=== PATIENT | female | born 1960 | race Hispanic/Latino ===

== ENCOUNTER 2016-11-24 17:54 | Emergency (ER) | payer OTHER ==
[~2016-11-24] VITALS: Ht 157.5 cm; Wt 81.6 kg
[2016-11-24] MEDS ORDERED: PRAVASTATIN SOD10 M2 PO (19:32)
[2016-11-24] MEDS ORDERED: LEVOTHYROXINE50 MCG PO (19:32)
[2016-11-24] MEDS ORDERED: METFORMIN HCL500 M4 PO (19:33)
[2016-11-24] MEDS ORDERED: OMEGA-3 ACID ETH1 GM PO (19:33)
[2016-11-24] MEDS ORDERED: BIOTIN800 MCG PO (19:33)
[2016-11-24] MEDS ORDERED: VITAMIN E100 UNI2 PO (19:33)
[2016-11-24] MEDS ORDERED: MULTI-DAY VITA1 EACH PO (19:34)
--- NOTE | 2016-11-24 19:55 | ED GI/GU/ABDOMINAL COMPLAINT ---
History of Present Illness General Chief Complaint: Female Urogenital Problems Stated Complaint: UTI Source: patient, family Exam Limitations: no limitations Vital Signs & Intake/Output Vital Signs & Intake/Output Vital Signs Date Time Temp Pulse Resp B/P Pulse O2 O2 Flow FiO2 Ox Delivery Rate 11/24 1957 97.8 78 18 116/75 97 Room Air 11/25 1807 96.8 85 18 112/72 98 Room Air Room Air ED Intake and Output 11/25 0000 11/24 1200 Intake Total Output Total Balance Patient 180 lb Weight Allergies Coded Allergies: No Known Allergies (11/24/16) Reconcile Medications Biotin (Unknown Strength) TABLET (Unknown Dose) PO DAILY SUPPLEMENT (Reported ) Cephalexin (Keflex) 500 MG CAPSULE 1 CAP PO TID UTI Cephalexin (Keflex) 500 MG CAPSULE 1 CAP PO TID uti Levothyroxine Sodium 50 MCG TABLET 1 TAB PO DAILY THYROID (Reported) Metformin HCl (Metformin HCl ER) 500 MG TAB.ER.24H 2 TAB PO BID DM (Reported) Multivitamin (Multi-Day Vitamins) 1 EACH TABLET 1 TAB PO DAILY SUPPLEMENT ( Reported) Mylo-3 Acid Ethyl Esters 1 GRAM CAPSULE 2 CAP PO BID CHOLESTEROL/ TRIGLYCERIDES (Reported) Phenazopyridine HCl (Pyridium) 100 MG TABLET 1 TAB PO TID PRN pain w/ urination Pravastatin Sodium 10 MG TABLET 1 TAB PO DAILY CHOLESTEROL (Reported) Vitamin E Mixed (Vitamin E) (Unknown Strength) TABLET (Unknown Dose) PO DAILY SUPPLEMENT (Reported) Triage Note: TRIAGE: 56 Y/O FEMALE PRESENTS C/O 9/10 VAGINAL PAIN; :"IT FEELS LIKE MY INSIDES ARE COMING OUT EVERY TIME I PEE." REPORTS ONSET X2 MONTHS - HAS ALREADY COMPLETED 10 DAY COURSE OF ABX. Triage Nurses Notes Reviewed? yes ? n Is pt currently ? No HPI: Ms. Darnell is a 56 yo f w/ PMH of DM, HLD, and hypothyroidism stenting to the emergency department for dysuria. Patient states that she's had increased urinary frequency, dysuria as well as urgency since today. Patient states she had a urinary tract infection in September which she was treated with Bactrim for 10 days. Patient feels that ever since then, the UTI hasn't really completely resolved. She has intermittent sporadic episodes of dysuria that will resolve as well as suprapubic tenderness to palpation. She endorses suprapubic tenderness. Patient denies any fevers, chills, chest pain, abdominal pain, nausea, vomiting, diarrhea or decreased by mouth intake. She's been defecating without issues. No blood in the stools. (SHELBY SALAZAR MD) Past History Travel History Traveled to [place] past 21 day No Medical History Any Pertinent Medical History? see below for history Cardiovascular: hyperlipidemia Endocrine: diabetes, hypothyroidism Surgical History Surgical History: tubal ligation Psychosocial History Who do you live with Spouse Services at Home None What is your primary language Japanese Tobacco Use: Never used ETOH Use: occasional use Illicit Drug Use: denies illicit drug use Family History Hx Contributory? No (SHELBY SALAZAR MD) Review of Systems Review of Systems Constitutional: Reports: no symptoms. EENTM: Reports: no symptoms. Respiratory: Reports: no symptoms. Cardiovascular: Reports: no symptoms. GI: Reports: no symptoms. Genitourinary: Reports: dysuria, frequency, pain, urgency. Denies: discharge, hematuria. Musculoskeletal: Reports: no symptoms. Skin: Reports: no symptoms. Neurological/Psychological: Reports: no symptoms. Hematologic/Endocrine: Reports: no symptoms. Immunologic/Allergic: Reports: no symptoms. All Other Systems: Reviewed and Negative (SHELBY SALAZAR MD) Physical Exam Physical Exam General Appearance: well developed/nourished, no apparent distress, alert, awake Head: atraumatic, normal appearance Eyes: Bilateral: normal appearance, PERRL, EOMI, normal inspection. Ears, Nose, Throat, Mouth: hearing grossly normal Neck: normal inspection, supple, full range of motion Respiratory: normal breath sounds, chest non-tender, no respiratory distress Cardiovascular: regular rate/rhythm Gastrointestinal: normal bowel sounds, soft, suprapubic tenderness to palpation Rectal: deferred Pelvic: normal external exam, normal bimanual exam, no cerv. motion tender, no masses Back: normal inspection Extremities: normal range of motion Neurologic/Psych: no motor/sensory deficits, awake, alert, oriented x 3, normal gait, normal mood/affect Skin: intact, normal color, warm/dry Core Measures ACS in differential dx? No Severe Sepsis Present: No Septic Shock Present: No (SHELBY SALAZAR MD) Progress Differential Diagnosis: appendicitis, diverticulitis, ovarian torsion, PID/ cervicitis, UTI/pyelo Plan of Care: Orders Procedure Date/time Status CULTURE,URINE 11/25 1815 Active URINALYSIS 11/25 1815 Complete Laboratory Tests 11/24/161819: Urine Color YEL, Urine Clarity TURBD H, Urine pH 6.0, Ur Specific [place] >= 1.030, Urine Protein 100 H, Urine Ketones NEG, Urine Nitrite NEG, Urine Bilirubin NEG, Urine Urobilinogen 0.2, Ur Leukocyte Esterase LARGE H, Ur Microscopic SEDIMENT EXAMINED, Urine RBC PACKD H, Urine WBC PACKD H, Ur Epithelial Cells RARE, Urine Bacteria MOD H, Urine Hemoglobin LARGE H, Urine Glucose NEG Microbiology 11/25 1819 URINE ROUT: Urine Culture - RECD Patient is generally well-appearing 56-year-old female she endorses dysuria frequency and urgency. Has history of previous UTI and the symptoms are similar to those. Patient given Pyridium in the emergency department to improve the pain. Physical exam is consistent with a UTI versus cystitis given the patient has suprapubic tenderness only. Patient does not endorse any bowel problems such as diarrhea or constipation to suggest diverticulitis. She has not tender in the right lower quadrant to suggest appendicitis and is afebrile. UA is positive for a large amount of leukocyte esterase as well as many bacteria with only few epithelial cells. Patient was previously given Bactrim. We will give Keflex for 2 weeks 3 times a day as she feels she had incomplete resolution of symptoms. Patient given Pyridium here in the emergency department and she stated her dysuria improved significantly. Patient is given urologic follow-up per her request. If she has another UTI within the next few months it would likely be helpful for her to follow up with urology. She was given return precautions. Follow-up with her PMD (SHELBY SALAZAR MD) Initial ED EKG: none (SHELBY SALAZAR MD) Departure Departure Time of Disposition: 1952 Disposition: HOME OR SELF CARE Condition: Stable Clinical Impression Primary Impression: Urinary tract infection Qualifiers: Urinary tract infection type: acute cystitis Hematuria presence: without hematuria Qualified Code: N30.00 - Acute cystitis without hematuria Referrals: VINH NDIAYE,MESFIN CARDOZA CNM,RAZIA Mancia (PCP/Family) Additional Instructions: Please complete the full course of antibiotics, even if her symptoms completely resolved. You had been also prescribed Pyridium which can cause body fluids including urinary tears to turn orange or red. Do not be alarmed by this. If you develop worsening abdominal pain, pain in her lower back, fevers or unable to take in food or drink, please return to the emergency department for further evaluation. Departure Forms: Customer Survey General Discharge Information Prescriptions: Current Visit Scripts Cephalexin (Keflex) 1 CAP PO TID #42 CAP Phenazopyridine HCl (Pyridium) 1 TAB PO TID PRN pain w/ urination #30 TAB Cephalexin (Keflex) 1 CAP PO TID #42 CAP (MARTIN GANN,SHELBY) PA/SEED LABORATORY TECHNICIAN Co-Sign Statement Statement: ED Attending supervision documentation- [] I saw and evaluated the patient. I have also reviewed all the pertinent lab results and diagnostic results. I agree with the findings and the plan of care as documented in the PA's/SEED LABORATORY TECHNICIAN's documentation. X I have reviewed the ED Record and agree with the PA's/SEED LABORATORY TECHNICIAN's documentation. [] Additions or exceptions (if any) to the PAs/SEED LABORATORY TECHNICIAN's note and plan are summarized below: [] Resident Co-Sign Statement Statement: ED Attending supervision documentation- X I saw and evaluated the patient. I have also reviewed all the pertinent lab results and diagnostic results. I agree with the findings and the plan of care as documented in the Resident's documentation. [] I have reviewed the ED Record and agree with the Resident's documentation. [] Additions or exceptions (if any) to the Resident's note and plan are summarized below: [] (CHARLES GANN,LUKE)
[2016-11-24 19:58] VITALS: BP 116/75
[2016-11-24] MEDS ORDERED: PYRIDIUM100 M1 PO (19:58)
[2016-11-24] MEDS ORDERED: KEFLEX500 M1 PO ×2 (19:58→20:01)
== END 2016-11-24 20:11 ==
LOC: ERH 17:54
DX: N39.0 Urinary tract infection, site not specified (principal)
CPT/HCPCS: 81001; 87086